=== PATIENT | male | born 1950 | race Caucasian/White ===

== ENCOUNTER 2019-11-12 07:36 | Outpatient (CLI) | payer OTHER, MEDICARE ==
[2019-11-12 11:05] LABS: #Eosinphils 0.2 thou/uL (0.0-0.7); #Lymphocytes 2.4 thou/uL (1.20-3.40); #Monocytes 0.6 thou/uL (0.11-0.59); #Neutrophils 3.1 thou/uL (1.40-6.50); %Basophils 0.3 % (0.0-1.0); %Eosinophils 2.9 % (0.0-10.0); %Lymphocytes 37.7 % (21.0-51.0); %Monocytes 9.9 % (0.0-10.0); %Neutrophils 49.2 % (42.0-75.0); Hemoglobin 12.9 g/dL (14.0-18.0); Mean Corpuscular HGB CONC 32.2 g/dL (32.0-36.0); Mean Corpuscular Hemoglobin 30.2 pg (27.0-31.0); Mean Corpuscular Volume 93.9 fL (78.0-98.0); Mean Platelet Volume 9.2 fL (7.4-10.4); Platelet Count 167 thou/uL (130-400); RBC Distribution Width 12.4 % (11.5-14.5); Red Blood Cell (RBC) Count 4.25 mill/uL (4.70-6.10); White Blood Cell (WBC) Count 6.3 thou/uL (4.8-10.8)
[2019-11-12 11:22] LABS: ALT (SGPT) 14 U/L (8-55); AST (SGOT) 14 U/L (5-34); Albumin 3.9 g/dL (3.4-4.8); Alkaline Phosphatase 57 U/L (40-110); Anion Gap 14 mmol/L (10-20); BUN (Urea Nitrogen) 24 mg/dL (8.4-25.7); Bilirubin, Total 0.5 mg/dL (0.2-1.2); Calc. Creatinine Clearance 0 mL/min (70-130); Calcium 8.4 mg/dL (7.8-10.44); Carbon Dioxide 22 mmol/L (23-31); Chloride 107 mmol/L (98-107); Estimated GFR-MDRD 55; Globulin 1.9 g/dL (2.4-3.5); Glucose 177 mg/dL (80-115); Potassium 4.2 mmol/L (3.5-5.1); Protein, Total 5.8 g/dL (5.8-8.1); Sodium 139 mmol/L (136-145)
[2019-11-12 18:04] LABS: SARS-CoV-2 MS2 Positive; SARS-CoV-2 N Gene Negative; SARS-CoV-2 S Gene Negative; SARS-CoV-2 by NAA Not Detected (NotDetected); SARS-CoV-2 orf1ab Negative
== END 2019-11-12 07:37 | disposition home or self-care (01) ==
LOC: LABBT 07:36
PROVIDERS: ATTEND Surgery
DX: Z01.818 Encounter for other preprocedural examination (principal); K42.9 Umbilical hernia without obstruction or gangrene; Z20.828 Contact with and (suspected) exposure to other viral communicable diseases
CPT/HCPCS: 80053; 85025; 87635; 93005; 93010; U0003

== ENCOUNTER 2019-11-14 05:41 | Day surgery (SDC) | payer MEDICARE ==
[2019-11-13 09:31] VITALS: BMI 34.2
[2019-11-14] MEDS ORDERED: Fentanyl 100 MCG/2 ML VIAL ONE ×2 (06:28→06:57)
[2019-11-14] MEDS ORDERED: Bupivacaine PF 0.5% 30 ML VIAL ONE (06:37)
[2019-11-14] MEDS ORDERED: Lidocaine 1% w/Epinephrine 1:100K 20 ML VIAL ONE (06:37)
[2019-11-14] MEDS ORDERED: Levofloxacin 500 mg/D5W 100 ml Premix Bag ONE (06:46)
[2019-11-14] MEDS ORDERED: Midazolam HCl 2 mg/2 ml Vial ONE ×2 (07:22→07:27)
[2019-11-14] MEDS ORDERED: Dexamethasone 20 MG/5 ML VIAL ONE (10:43)
[2019-11-14] MEDS ORDERED: Ondansetron PF 4 MG/2 ML Vial ONE (10:43)
[2019-11-14] MEDS ORDERED: PROPOFOL 200 MG/20 ML VIAL ONE (10:43)
[2019-11-14] MEDS ORDERED: Lidocaine 1% PF 5 ML VIAL ONE (10:43)
[2019-11-14] MEDS ORDERED: Glycopyrrolate 0.2 MG/ML 5 ML SYRINGE ONE ×2 (10:43)
[2019-11-14] MEDS ORDERED: Rocuronium Bromide 10 MG/ML (10ML VIAL) ONE (10:43)
[2019-11-14] MEDS ORDERED: Ketorolac Tromethamine 30 MG/ML VIAL ONE (10:43)
--- NOTE | 2019-11-14 11:03 | OP ---
DATE OF PROCEDURE: 11/14/2019 PREOPERATIVE DIAGNOSIS: Umbilical hernia. PROCEDURE PERFORMED: Umbilical hernia repair. INDICATIONS: A 68-year-old male who has a painful umbilical hernia. FINDINGS: There is about over 2.5 cm swelling underneath the skin, but the actual defect was only 0.5 cm, so mesh was not used. DESCRIPTION OF PROCEDURE: After informed consent was obtained, the patient was taken to the operating room and given general mask anesthesia, placed in supine position. Abdomen was prepped and draped in the usual fashion. Local anesthesia was infiltrated subcutaneously and deep, and a subumbilical incision was performed. The hernia sac was dissected from surrounding cord structures circumferentially down to the fascia. The actual fascial defect was extremely small. I could not get it to reduce. For that reason, this fatty omentum was divided with a Apurva clamp and suture ligated with 2-0 Vicryl sutures and reduced. The defect was very small, 5 mm, and was closed with trulmp-vs-vinfap of 0 Ethibond. Hemostasis was achieved with electrocautery. The umbilical skin was reapproximated to the fascia with interrupted 3-0 Vicryl to restore umbilical contour. Then, the skin closed with interrupted 4-0 Rapide. Steri-Strips applied. Sterile bandage applied. The patient tolerated the procedure well, transferred to Recovery in good condition. Sponge and needle count verified correct x2. Job ID: [id number]
--- NOTE | 2019-11-14 23:45 | EKG ---
Test Reason : PREOP Blood Pressure : / mmHG Vent. Rate : 050 BPM Atrial Rate : 050 BPM P-R Int : 160 ms QRS Dur : 084 ms QT Int : 416 ms P-R-T Axes : 029 020 029 degrees QTc Int : 379 ms Sinus bradycardia Otherwise normal ECG No previous ECGs available Confirmed by Dominique BARNHART ([id number]) on 11/14/2019 11:45:03 PM Referred By: KATHERINE Confirmed By:Dominique BARNHART
== END 2019-11-14 10:35 | disposition home or self-care (01) ==
LOC: SDC 05:41
PROVIDERS: ATTEND Surgery
PROC: 0WQF0ZZ Repair Abdominal Wall, Open Approach (ICD-10-PCS; principal; 2019-11-14)
DX: K42.9 Umbilical hernia without obstruction or gangrene (principal); I10 Essential (primary) hypertension; E78.5 Hyperlipidemia, unspecified; E11.9 Type 2 diabetes mellitus without complications; Z79.84 Long term (current) use of oral hypoglycemic drugs; Z79.899 Other long term (current) drug therapy; Z88.0 Allergy status to penicillin
CPT/HCPCS: 93005; 93010; J1100; J1885; J1956; J2250; J2405; J2704; J3010; S0020

== ENCOUNTER 2020-01-09 08:13 | Outpatient (CLI) | payer MEDICARE ==
--- NOTE | 2020-01-09 09:37 | ULT ---
VENOUS DOPPLER ULTRASOUND OF THE LEFT LOWER EXTREMITY: Date: 01/09/2020 HISTORY: Left lower extremity edema and pain. TECHNIQUE: Nam scale ultrasound with color flow and spectral Doppler imaging of the deep venous system of the l eft lower extremity is performed. FINDINGS: There is good flow, compression, and augmentation noted in the left common femoral, femoral, deep fem oral, popliteal, posterior tibial, and greater saphenous veins. IMPRESSION: No evidence of deep venous thrombosis in the left lower extremity. POS: [facility]
--- NOTE | 2020-01-09 10:48 | RAD ---
LEFT ANKLE 3 VIEWS: Date: 01/09/2020 HISTORY: Left leg pain and swelling. FINDINGS: Minimal soft tissue swelling anteriorly and medially and laterally. Mild degenerative and osteoarthro sis changes of the ankle joint. Calcaneal plantar and Achilles enthesophytes. No evidence for acute f racture or dislocation. IMPRESSION: Mild generalized soft tissue swelling. Minimal osteoarthrosis and degenerative change. POS: [facility]
== END 2020-01-09 08:14 | disposition home or self-care (01) ==
LOC: BICULT 08:13
PROVIDERS: ATTEND Family Medicine
DX: M79.605 Pain in left leg (principal); M79.89 Other specified soft tissue disorders; M19.072 Primary osteoarthritis, left ankle and foot

== ENCOUNTER 2020-05-28 09:08 | Outpatient (CLI) | payer MEDICARE | END 2020-05-28 09:09 | disposition home or self-care (01) | LOC: BICRAD 09:08 | PROVIDERS: ATTEND Family Medicine | DX: Z01.818 Encounter for other preprocedural examination (principal) | CPT/HCPCS: 71046 ==